=== PATIENT | female | born 1950 | race Caucasian/White ===

== ENCOUNTER → 2017-10-31 | Outpatient (CLI) | payer MEDICARE, BC ==
--- NOTE | 2017-11-01 11:33 | MR ---
MR liver with and without contrast HISTORY: Liver disease Multiplanar multisequence and postcontrast imaging obtained through the liver following 10 cc Gadavis t IV. No comparisons The liver shows signal drop on out of phase imaging with areas of sparing noted towards the portal re gion compatible with hepatic steatosis. There is no focal liver mass evident. No abnormal enhancement . The gallbladder shows no stone but is contracted. Biliary system is not dilated. Pancreas unremarka ble as seen. Kidneys show no hydronephrosis. Spleen is normal. No retroperitoneal adenopathy. Adrenal glands are normal. No bowel obstruction seen. There is a small hiatal hernia present. Lung bases wallace w no pleural effusion. Aorta shows normal caliber. IMPRESSION: Hepatic steatosis with focal fatty sparing, no liver mass. Small hiatal hernia.
== END | disposition home or self-care (01) ==
LOC: RADMRIMAIN 13:47
PROVIDERS: ATTEND Internal Medicine
DX: K76.0 Fatty (change of) liver, not elsewhere classified (principal); K44.9 Diaphragmatic hernia without obstruction or gangrene
CPT/HCPCS: 74183; A9581

== ENCOUNTER → 2018-02-25 | Outpatient (CLI) | payer MEDICARE, BC ==
--- NOTE | 2018-03-01 09:03 | MM ---
Reason for exam: screening (asymptomatic). Last mammogram was performed 1 year and 11 months ago. History: Patient is postmenopausal. Family history of breast cancer in paternal cousin. Taking estrogen for 1 year 1 month. Took progesterone for 1 year 1 month. Physical Findings: A clinical breast exam by your physician is recommended on an annual basis and results should be correlated with mammographic findings. MG 3D Screening Mammo W/Cad Bilateral CC and MLO view(s) were taken. Prior study comparison: April 03, 2016, bilateral MG screening mammo w CAD. August 04, 2013, bilateral digital screening mammo w/CAD. There are scattered fibroglandular densities. No significant changes when compared with prior studies. ASSESSMENT: Benign, BI-RAD 2 RECOMMENDATION: Routine screening mammogram of both breasts in 1 year.
== END ==
LOC: RADMAMWWP 13:37
PROVIDERS: ATTEND Internal Medicine
DX: Z12.31 Encounter for screening mammogram for malignant neoplasm of breast (principal)
CPT/HCPCS: 77063; 77067

== ENCOUNTER → 2018-02-26 | Outpatient (CLI) | payer MEDICARE, BC ==
--- NOTE | 2018-02-26 10:19 | CT ---
EXAMINATION TYPE: CT brain wo con DATE OF EXAM: 02/26/2018 COMPARISON: None INDICATION: Right posterior head injury yesterday. Dizziness. DLP: 1072.3 mGycm, Automated exposure control for dose reduction was used. CONTRAST: None CT of the brain is performed utilizing 3 mm thick sections through the posterior fossa and 3 mm thick sections through the remaining calvarium. Study is performed within 24 hours of arrival to the hosp [facility]. No abnormal hyperdensity is present to suggest an acute intracranial hemorrhage. No mass lesion is evident. No acute infarcts are evident. Ventricles and sulci are appropriate for the patient age. Paranasal sinuses and mastoid air cells within the [id number] are clear. There is soft tissue swelling and subcutaneous hematoma measuring 1.4 cm in the posterior right verte x of the patient's injury. No underlying fractures are evident. IMPRESSIONS: 1. Subcutaneous subgaleal hemorrhage measuring 1.4 cm. No underlying fracture is evident. 2. No acute intracranial process.
== END | disposition home or self-care (01) ==
LOC: RADCTMAIN 09:32
PROVIDERS: ATTEND Internal Medicine
DX: S06.300A Unspecified focal traumatic brain injury without loss of consciousness, initial encounter (principal)
CPT/HCPCS: 70450

== ENCOUNTER → 2018-09-21 | Outpatient (CLI) | payer MEDICARE, BC ==
[2018-09-21 07:58] LABS: Basophils % (A) 1 %; Eosinophils # (A) 0.2 k/uL (0-0.7); Eosinophils % (A) 2 %; HCT 43.8 % (34.0-46.0); HGB 13.6 gm/dL (11.4-16.0); Lymphocytes # (A) 2.5 k/uL (1.0-4.8); Lymphocytes % (A) 40 %; MCH 26.6 pg (25.0-35.0); MCHC 31.1 g/dL (31.0-37.0); MCV 85.7 fL (80.0-100.0); Mean Platelet Volume 6.7; Monocytes # (A) 0.3 k/uL (0-1.0); Monocytes % (A) 5 %; Neutrophils # (A) 3.2 k/uL (1.3-7.7); Neutrophils % (A) 50 %; Platelet Count 332 k/uL (150-450); RBC 5.11 m/uL (3.80-5.40); RDW 14.4 % (11.5-15.5); WBC 6.3 k/uL (3.8-10.6)
[2018-09-21 08:24] LABS: Appearance,Urine Clear (Clear); Bilirubin,Urine Negative (Negative); Blood,Urine Negative (Negative); Color,Urine Yellow; Glucose,Urine (UA) Negative (Negative); Ketones,Urine 1+ (Negative); Leukocyte Esterase,Urine Negative (Negative); Nitrite,Urine Negative (Negative); Protein,Urine Negative (Negative); Specific Gravity,Urine 1.016 (1.001-1.035); Urobilinogen,Urine <2.0 mg/dL (<2.0)
[2018-09-21 11:53] LABS: Albumin 4.3 g/dL (3.80-4.90); Albumin/Globulin Ratio 1.65 (1.60-3.17); Anion Gap 7.2 mmol/L (4.00-12.00); Calcium 9.8 mg/dL (8.7-10.3); Carbon Dioxide 25.8 mmol/L (21.6-31.8); Globulin 2.6 g/dL (1.6-3.3); LDL Cholesterol,Calculated 141.2 mg/dL (0.0-131.0); Potassium 4.2 mmol/L (3.5-5.5); Total Bilirubin 0.6 mg/dL (0.3-1.2); Total Protein 6.9 g/dL (6.2-8.2); VLDL Calculation 29.8 mg/dL (5.00-40.00)
== END ==
LOC: LABWHC1 07:02
PROVIDERS: ATTEND Internal Medicine
DX: Z00.00 Encounter for general adult medical examination without abnormal findings (principal); E78.5 Hyperlipidemia, unspecified; M81.0 Age-related osteoporosis without current pathological fracture
CPT/HCPCS: 36415; 80053; 80061; 81003; 82306; 85025

== ENCOUNTER → 2018-10-05 | Outpatient (CLI) | payer MEDICARE, BC ==
[~2018-10-05] MED LIST: DENOSUMAB 60 MG/ML 1 ML SYRINGE SQ ONE
[2018-10-05 11:47] VITALS: BP 121/85; PULSE 72; RESP 18; TEMP 97.8
== END ==
LOC: PROCWHC3 11:24
PROVIDERS: ATTEND Internal Medicine
DX: M81.0 Age-related osteoporosis without current pathological fracture (principal)
CPT/HCPCS: 96372; J0897

== ENCOUNTER → 2019-04-12 | Outpatient (CLI) | payer MEDICARE, BC ==
[~2019-04-12] MED LIST changes: +DENOSUMAB 60 MG/ML 1 ML SYRINGE SQ NR; -DENOSUMAB 60 MG/ML 1 ML SYRINGE SQ ONE
[2019-04-12 13:54] VITALS: BP 137/83; PULSE 101; RESP 16; TEMP 97.6
== END ==
LOC: PROCWHC3 13:46
PROVIDERS: ATTEND Internal Medicine
DX: M81.0 Age-related osteoporosis without current pathological fracture (principal)
CPT/HCPCS: 96372; J0897

== ENCOUNTER → 2019-04-26 | Outpatient (CLI) | payer MEDICARE, BC ==
--- NOTE | 2019-04-29 10:43 | MM ---
Reason for exam: screening (asymptomatic). Last mammogram was performed 1 year and 2 months ago. History: Patient is postmenopausal. Family history of breast cancer in paternal cousin. Took estrogen for 1 year 1 month. Took progesterone for 1 year 1 month. Physical Findings: A clinical breast exam by your physician is recommended on an annual basis and results should be correlated with mammographic findings. MG 3D Screening Mammo W/Cad Bilateral CC and MLO view(s) were taken. Prior study comparison: February 25, 2018, bilateral MG 3d screening mammo w/cad. April 03, 2016, bilateral MG screening mammo w CAD. There are scattered fibroglandular densities. 6mm circumscribed isodense nodularity lateral central left breast slightly larger from 2018. A cyst or other benign etiology is suspected. 6 month follow up recommended. ASSESSMENT: Probably benign, BI-RAD 3 RECOMMENDATION: Follow-up diagnostic mammogram of the left breast in 6 months.
== END | disposition home or self-care (01) ==
LOC: RADMAMWWP 10:56
PROVIDERS: ATTEND Internal Medicine
DX: Z12.31 Encounter for screening mammogram for malignant neoplasm of breast (principal)
CPT/HCPCS: 77063; 77067

== ENCOUNTER → 2019-10-13 | Outpatient (CLI) | payer MEDICARE, BC ==
[~2019-10-13] MED LIST changes: -DENOSUMAB 60 MG/ML 1 ML SYRINGE SQ NR; +DENOSUMAB 60 MG/ML 1 ML SYRINGE SQ ONE
[2019-10-13 11:48] VITALS: BP 102/72; PULSE 72; RESP 16; TEMP 98.2
== END | disposition home or self-care (01) ==
LOC: PROCWHC3 11:24
PROVIDERS: ATTEND Internal Medicine
DX: M81.0 Age-related osteoporosis without current pathological fracture (principal)
CPT/HCPCS: 96372; J0897

== ENCOUNTER → 2019-10-26 | Outpatient (CLI) | payer MEDICARE, BC ==
--- NOTE | 2019-10-26 12:04 | MM ---
Reason for exam: follow-up at short interval from prior study. Last mammogram was performed 6 months ago. History: Patient is postmenopausal. Family history of breast cancer in paternal cousin. Took hormonal contraceptives for 10 years. Took estrogen for 1 year 1 month. Took progesterone for 1 year 1 month. Physical Findings: Nurse Summary: 0.5cm nodule in the left breast at 11 o'clock (nurse sue). MG 3D Diag Mammo W/Cad LT CC and MLO view(s) were taken of the left breast. Prior study comparison: April 26, 2019, bilateral MG 3d screening mammo w/cad. February 25, 2018, bilateral MG 3d screening mammo w/cad. The breast tissue is heterogeneously dense. This may lower the sensitivity of mammography. Persistent nodule left breast 9 o'clock. Ultrasound recommended, ultrasound also for palpable. These results were verbally communicated with the patient and result sheet given to the patient on 10/26/19. ASSESSMENT: Incomplete: need additional imaging evaluation, BI-RAD 0 RECOMMENDATION: Ultrasound of the left breast. Manage patient on a clinical basis.
--- NOTE | 2019-10-26 12:05 | USB ---
Reason for exam: additional evaluation requested from abnormal screening. History: Patient is postmenopausal. Family history of breast cancer in paternal cousin. Took hormonal contraceptives for 10 years. Took estrogen for 1 year 1 month. Took progesterone for 1 year 1 month. US Breast Limited LT Left limited breast ultrasound including focal area of concern, retroareolar and axilla demonstrates no cystic or solid lesion seen. Negative. These results were verbally communicated with the patient and result sheet given to the patient on 10/26/19. ASSESSMENT: Negative, BI-RAD 1 RECOMMENDATION: Follow-up diagnostic mammogram of both breasts in 6 months. Manage patient on a clinical basis.
== END | disposition home or self-care (01) ==
LOC: RADMAMWWP 10:48
PROVIDERS: ATTEND Internal Medicine
DX: R92.2 Inconclusive mammogram (principal); N63.20 Unspecified lump in the left breast, unspecified quadrant; R92.8 Other abnormal and inconclusive findings on diagnostic imaging of breast
CPT/HCPCS: 77065; 76642; G0279; 77061

== ENCOUNTER → 2020-04-17 | Outpatient (CLI) | payer MEDICARE, BC ==
[~2020-04-17] MED LIST changes: +DENOSUMAB 60 MG/ML 1 ML SYRINGE SQ NR; -DENOSUMAB 60 MG/ML 1 ML SYRINGE SQ ONE
[2020-04-17 12:07] VITALS: BP 134/93; PULSE 95; RESP 16; TEMP 98.1
== END | disposition home or self-care (01) ==
LOC: PROCWHC3 11:57
PROVIDERS: ATTEND Internal Medicine
DX: M81.0 Age-related osteoporosis without current pathological fracture (principal)
CPT/HCPCS: 96372; J0897

== ENCOUNTER → 2020-06-06 | Outpatient (CLI) | payer MEDICARE, BC ==
[2020-06-06 10:46] LABS: Basophils # (A) 0.1 k/uL (0-0.2); Basophils % (A) 1 %; Eosinophils # (A) 0.1 k/uL (0-0.7); Eosinophils % (A) 2 %; HCT 47.9 % (34.0-46.0); HGB 14.4 gm/dL (11.4-16.0); Hypochromasia Slight; Lymphocytes # (A) 2.4 k/uL (1.0-4.8); Lymphocytes % (A) 32 %; MCH 27.1 pg (25.0-35.0); MCHC 30.1 g/dL (31.0-37.0); MCV 89.9 fL (80.0-100.0); Mean Platelet Volume 6.7; Monocytes # (A) 0.3 k/uL (0-1.0); Monocytes % (A) 5 %; Neutrophils # (A) 4.3 k/uL (1.3-7.7); Neutrophils % (A) 59 %; Platelet Count 348 k/uL (150-450); RBC 5.33 m/uL (3.80-5.40); WBC 7.4 k/uL (3.8-10.6)
[2020-06-06 11:00] LABS: Potassium 4.8 mmol/L (3.5-5.1)
== END | disposition home or self-care (01) ==
LOC: LABPAT 09:48
PROVIDERS: ATTEND Orthopaedic Surgery
DX: Z01.812 Encounter for preprocedural laboratory examination (principal); M23.91 Unspecified internal derangement of right knee
CPT/HCPCS: 36415; 80051; 85025

== ENCOUNTER 2020-06-13 09:55 | Day surgery (SDC) | payer MEDICARE, BC ==
[2020-06-11 15:32] VITALS: BMI 30.1
--- NOTE | 2020-06-12 16:12 | HP ---
HISTORY AND PHYSICAL Surgery is scheduled for 06/13/2020. Hilary Bnag is a 69-year-old patient seen with progressive right knee pain. We discussed options for treatment. She elected to proceed with right knee arthroscopy. Consent was obtained. PAST MEDICAL HISTORY: Noncontributory. PAST SURGICAL HISTORY: Appendectomy, section, hand surgery, hysterectomy, tonsillectomy, wrist surgery. DAILY MEDICATIONS: None. ALLERGIES: SULFA. SOCIAL HISTORY: She denies current tobacco use. PHYSICAL EVALUATION OF THE RIGHT KNEE: Range of motion 0-130. Mild effusion. Tenderness medial joint line. Positive medial Moira's. Ligaments stable. Hip rotation without pain. Distal neurovascular exam is intact. Radiographs of the right knee revealed mild osteoarthritis. Right knee MRI revealed medial meniscal tear, osteoarthritis, joint effusion, and loose body. IMPRESSION: 1. Internal derangement, right knee with medial meniscal tear. 2. Right knee loose body. 3. Right knee mild osteoarthritis. PLAN: Right knee arthroscopy with partial meniscectomy, removal loose body, and partial synovectomy. MMODL / IJN: [id number] /
[~2020-06-13 09:55] MED LIST changes: -DENOSUMAB 60 MG/ML 1 ML SYRINGE SQ NR; +DEXAMETHASONE SOD PHOSPHATE 4 MG/ML 1 ML VIAL IV ONE; +LACTATED RINGERS 1,000 ML IV SCH; +LIDOCAINE 1% (10MG/ML) FOR IV START INTRADERMA PRN; +MIDAZOLAM 2 MG/2 ML VIAL IV PRN
[2020-06-13] MEDS ORDERED: ONDANSETRON 4 MG/2 ML VIAL ONE ×2 (10:23→14:34)
[2020-06-13] MEDS ORDERED: KETOROLAC 15 MG/ML 1 ML VIAL ONE (11:16)
[2020-06-13] MEDS ORDERED: LIDOCAINE 1% INJ 10MG/ML (20 ML MDV) ONE (11:16)
[2020-06-13] MEDS ORDERED: PROPOFOL 10 MG/ML 20 ML VIAL IV ONE (11:16)
[2020-06-13] MEDS ORDERED: fentaNYL (PF) 50 MCG/ML 2 ML AMP ONE (11:16)
[2020-06-13] MEDS ORDERED: MIDAZOLAM 2 MG/2 ML VIAL ONE (11:16)
[2020-06-13] MEDS ORDERED: BUPIVACAINE (PF) 0.25% 30 ML VIAL INTRAARTIC ONE (11:33)
--- NOTE | 2020-06-13 12:11 | P.OP ---
Date of Procedure: 06/13/20 Preoperative Diagnosis: Internal derangement right knee Postoperative Diagnosis: 1. Tear medial meniscus right knee 2. Grade 2/3 chondromalacia medial femoral condyle right knee 3. 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 Reactive synovitis medial, lateral and suprapatellar compartments right knee Procedure(s) Performed: 1. Arthroscopic partial medial meniscectomy right knee 2. Arthroscopic chondroplasty medial femoral condyle right knee 3. Partial synovectomy medial, lateral and suprapatellar compartments right knee Anesthesia: SOLOMONA, local Surgeon: Parag Olmstead Estimated Blood Loss (ml): 7 Pathology: none sent Condition: stable Disposition: PACU Indications for Procedure: 69-year-old patient seen with progressive right knee pain. After treatment options were discussed with her, she elected to proceed with arthroscopy. Operative Findings: see description of procedure Description of Procedure: Patient was taken to the operative suite. Patient underwent a [general] anesthetic by the department of anesthesia. Patient was given preoperative antibiotics. The right lower extremity was placed in a well-padded arthroscopic leg boyd. The right leg was prepped and draped in the normal sterile orthopedic fashion. A lateral parapatellar and suprapatellar incision was made. Trochars were inserted. Arthroscopy was initiated. Suprapatellar pouch revealed diffuse thick reactive synovitis. The patellofemoral joint appeared to articulate congruently. There were areas of grade 4 chondromalacia with exposed bone involving both the medial patellar facet and the medial side of the femoral sulcus. There were no osteochondral tears present.. The scope was guided into the medial gutter there was no plica, there were no loose bodies. The scope was then guided into the medial compartment. A medial parapatellar incision was made. Trocar inserted followed by probe. There was a large tear posterior horn medial meniscus. There were grade 2/3 chondromalacia changes of the medial femoral condyle with some diffuse osteochondral tears present. There was thick reactive synovitis anteriorly. I performed a partial medial meniscectomy getting down to stable meniscal tissue. I performed a chondroplasty of the medial femoral condyle getting down to stable osteochondral tissue. I performed a partial synovectomy decompressing the thick reactive synovitis. The residual meniscus was probed and found to be stable. The residual osteochondral surface appeared stable. There was good decompression of the synovitis. Scope and probe were then guided into the intercondylar notch. Cruciates were identified, probed and found to be stable. The scope and probe were then guided into lateral compartment. The lateral meniscus was probed and found to be stable. There was mild grade 1 chondromalacia of the lateral compartment. There was thick reactive synovitis anteriorly. I introduced a motorized shaver and performed a partial synovectomy decompressing the thick reactive synovitis. Shaver was removed. There was good decompression of the synovitis. The scope was in guided back into the suprapatellar compartment. I introduced a motorized shaver into the suprapatellar compartment. I debrided some piecemeal fragments of meniscus I encountered. I performed a partial synovectomy decompressing the reactive synovitis. The shaver was removed. There was good decompression of the synovitis. I took one more look around the entire knee, no residual debris. Instruments were now removed from the joint. The joint was infiltrated with .25% Marcaine. Steri-S trips were applied to the portal sites. Sterile dressings were applied. The patient was placed into a GARTH hose. No tourniquet was utilized. The patient was awakened, transferred to a bed and taken to recovery stable satisfactory condition.
[2020-06-13 12:13] VITALS: TEMP 98
[2020-06-13] MEDS: HYDROmorphone 0.5 MG/0.5 ML SYRINGE IVP PRN ×2 (12:17→12:31)
[2020-06-13] MEDS ORDERED: HYDROcodone/APAP 5-325MG 1 EACH TAB ONE (13:11)
[2020-06-13] MEDS ORDERED: HYDROcodone/APAP 5-325MG 1 EACH TAB PO ONE (13:18)
[2020-06-13 14:07] VITALS: RESP 16
[2020-06-13] MEDS ORDERED: ONDANSETRON 4 MG/2 ML VIAL IVP ONE (14:35)
[2020-06-13 15:26] VITALS: BP 142/72; PULSE 72
== END 2020-06-13 15:36 | disposition home or self-care (01) ==
LOC: OR 09:55
PROVIDERS: ATTEND Orthopaedic Surgery
DX: S83.241A Other tear of medial meniscus, current injury, right knee, initial encounter (principal); X58.XXXA Exposure to other specified factors, initial encounter; M22.41 Chondromalacia patellae, right knee; M65.861 Other synovitis and tenosynovitis, right lower leg; M17.11 Unilateral primary osteoarthritis, right knee; M25.461 Effusion, right knee; E78.5 Hyperlipidemia, unspecified; Z79.899 Other long term (current) drug therapy; Z88.2 Allergy status to sulfonamides; Z90.49 Acquired absence of other specified parts of digestive tract; Z90.710 Acquired absence of both cervix and uterus; Z90.89 Acquired absence of other organs; Z98.890 Other specified postprocedural states
CPT/HCPCS: 29881; 29876; J2250; J1100; J0690; J2405; J2001; J3010; J1885; J2704; J1170

== ENCOUNTER → 2020-08-03 | Outpatient (CLI) | payer MEDICARE, BC ==
--- NOTE | 2020-08-03 13:45 | MM ---
Reason for exam: additional evaluation requested from prior study. Last mammogram was performed 9 months ago. History: Patient is postmenopausal. Family history of breast cancer in paternal cousin. Took hormonal contraceptives for 10 years. Took estrogen for 1 year 1 month. Took progesterone for 1 year 1 month. Physical Findings: Nurse did not find any significant physical abnormalities on exam. MG 3D Diag Mammo W/Cad BALDEMAR Bilateral CC and MLO view(s) were taken. Prior study comparison: October 26, 2019, left breast MG 3d diag mammo w/cad LT. April 26, 2019, bilateral MG 3d screening mammo w/cad. The breast tissue is heterogeneously dense. This may lower the sensitivity of mammography. There is chronic nodularity in the left breast. Medial nodular asymmetry is more defined in the right breast. 6mm 2-3 o'clock low density on spot views. These results were verbally communicated with the patient and result sheet given to the patient on 08/03/20. ASSESSMENT: Incomplete: need additional imaging evaluation, BI-RAD 0 RECOMMENDATION: Ultrasound of the right breast. (2-3 o'clock)
--- NOTE | 2020-08-03 13:46 | USB ---
Reason for exam: additional evaluation requested from abnormal screening. History: Patient is postmenopausal. Family history of breast cancer in paternal cousin. Took hormonal contraceptives for 10 years. Took estrogen for 1 year 1 month. Took progesterone for 1 year 1 month. US Breast Limited RT Technologist: Quynh Katz Right limited breast ultrasound including focal area of concern, retroareolar and axilla demonstrates no cystic or solid lesion seen. Scanned 1-4 o'clock. These results were verbally communicated with the patient and result sheet given to the patient on 08/03/20. ASSESSMENT: Probably benign, BI-RAD 3 RECOMMENDATION: Follow-up diagnostic mammogram of the right breast in 6 months.
== END | disposition home or self-care (01) ==
LOC: RADMAMWWP 10:47
PROVIDERS: ATTEND Internal Medicine
DX: R92.8 Other abnormal and inconclusive findings on diagnostic imaging of breast (principal); Z78.0 Asymptomatic menopausal state
CPT/HCPCS: 77066; 76642; G0279; 77062

== ENCOUNTER → 2020-10-22 | Outpatient (CLI) | payer MEDICARE, BC ==
[~2020-10-22] MED LIST changes: +DENOSUMAB 60 MG/ML 1 ML SYRINGE SQ NR; -DEXAMETHASONE SOD PHOSPHATE 4 MG/ML 1 ML VIAL IV ONE; -LACTATED RINGERS 1,000 ML IV SCH; -LIDOCAINE 1% (10MG/ML) FOR IV START INTRADERMA PRN; -MIDAZOLAM 2 MG/2 ML VIAL IV PRN
[2020-10-22 12:47] VITALS: BP 155/93; PULSE 81; RESP 16; TEMP 98.7
== END | disposition home or self-care (01) ==
LOC: PROCWHC3 12:09
PROVIDERS: ATTEND Internal Medicine
DX: M81.0 Age-related osteoporosis without current pathological fracture (principal)
CPT/HCPCS: 96372; J0897

== ENCOUNTER → 2021-05-24 | Outpatient (CLI) | payer MEDICARE, BC ==
[2021-05-24 13:37] VITALS: BP 132/89; PULSE 96; RESP 14; TEMP 98.3
== END ==
LOC: PROCWHC3 13:15
PROVIDERS: ATTEND Family Medicine
DX: M81.0 Age-related osteoporosis without current pathological fracture (principal); Z88.2 Allergy status to sulfonamides; Z87.891 Personal history of nicotine dependence
CPT/HCPCS: 96372; J0897

== ENCOUNTER → 2021-07-17 | Outpatient (CLI) | payer MEDICARE, BC ==
--- NOTE | 2021-07-17 10:18 | MM ---
Reason for exam: additional evaluation requested from prior study. Last mammogram was performed 11 months ago. History: Patient is postmenopausal. Family history of breast cancer in paternal cousin. Took hormonal contraceptives for 10 years. Took estrogen for 1 year 1 month. Took progesterone for 1 year 1 month. Physical Findings: A clinical breast exam by your physician is recommended on an annual basis and results should be correlated with mammographic findings. MG 3D Diag Mammo W/Cad BALDEMAR Bilateral CC and MLO view(s) were taken. Prior study comparison: August 03, 2020, bilateral MG 3d diag mammo w/cad BALDEMAR. October 26, 2019, left breast MG 3d diag mammo w/cad LT. The breast tissue is heterogeneously dense. This may lower the sensitivity of mammography. There is chronic nodularity bilaterally. There is no dominant lesion. No significant new findings when compared with previous films. These results were verbally communicated with the patient and result sheet given to the patient on 07/17/21. ASSESSMENT: Benign, BI-RAD 2 RECOMMENDATION: Routine screening mammogram of both breasts in 1 year.
== END | disposition home or self-care (01) ==
LOC: RADMAMWWP 09:32
PROVIDERS: ATTEND Family Medicine
DX: R92.8 Other abnormal and inconclusive findings on diagnostic imaging of breast (principal); Z78.0 Asymptomatic menopausal state; Z80.3 Family history of malignant neoplasm of breast
CPT/HCPCS: 77066; G0279; 77062

== ENCOUNTER → 2022-04-10 | Outpatient (CLI) | payer MEDICARE, BC ==
[2022-04-10 08:05] VITALS: BP 127/84; PULSE 92; RESP 16; TEMP 97.5
== END ==
LOC: PROCWHC3 07:49
PROVIDERS: ATTEND Family Medicine
DX: M81.0 Age-related osteoporosis without current pathological fracture (principal); Z88.2 Allergy status to sulfonamides; Z87.891 Personal history of nicotine dependence
CPT/HCPCS: 96372; J0897

== ENCOUNTER → 2022-09-19 | Outpatient (CLI) | payer MEDICARE, BC ==
--- NOTE | 2022-09-22 07:57 | MM ---
Reason for Exam: Screening (asymptomatic). Last mammogram was performed 1 year(s) and 2 month(s) ago. Patient History: Menarche at age 13. First Full-Term at age 23. Left ovary removed at age 53. Right ovary removed at age 53. Hysterectomy at age 53. Postmenopausal. Estrogen for 1 year, 1 month. Progesterone for 1 year, 1 month, until age 59. Patient used Hormonal Contraceptives for 10 years. Paternal cousin had breast cancer, age 45. Risk Values: Julita 5 year model risk: 1.7%. NCI Lifetime model risk: 5.2%. Prior Study Comparison: 10/26/2019 Left Diagnostic Mammogram, [facility]. 08/03/2020 Bilateral Diagnostic Mammogram, [facility]. 07/17/2021 Bilateral Diagnostic Mammogram, [facility]. Tissue Density: The breast tissue is heterogeneously dense. This may lower the sensitivity of mammography. Findings: Analyzed By CAD. Asymmetric density upper outer left breast zone B. Additional views recommended. No suspicious calcifications present. Overall Assessment: Incomplete: need additional imaging evaluation, BI-RAD 0 Management: Diagnostic Mammogram of the left breast. . Patient should continue monthly self-breast exams. A clinical breast exam by your physician is recommended on an annual basis. This exam should not preclude additional follow-up of suspicious palpable abnormalities. Note on Julita scores and lifetime risk: 1. A Julita score greater than 3% is considered moderate risk. If this is the case, consider specialist referral to assess eligibility for a risk reducing agent. 2. If overall lifetime risk for the development of breast cancer is 20% or higher, the patient may qualify for future screening with alternating mammogram and breast MRI. Electronically signed and approved by: Bebo Reyes M.D. Radiologis
== END | disposition home or self-care (01) ==
LOC: RADMAMWWP 07:18
PROVIDERS: ATTEND Family Medicine
DX: Z12.31 Encounter for screening mammogram for malignant neoplasm of breast (principal); Z78.0 Asymptomatic menopausal state; Z80.3 Family history of malignant neoplasm of breast
CPT/HCPCS: 77063; 77067

== ENCOUNTER → 2022-09-24 | Outpatient (CLI) | payer MEDICARE, BC ==
--- NOTE | 2022-09-24 15:27 | MM ---
Reason for Exam: Additional evaluation requested from abnormal screening. Last screening mammogram was performed less than 1 month ago. Patient History: Menarche at age 13. First Full-Term at age 23. Left ovary removed at age 53. Right ovary removed at age 53. Hysterectomy at age 53. Postmenopausal. Estrogen for 1 year, 1 month. Progesterone for 1 year, 1 month, until age 59. Patient used Hormonal Contraceptives for 10 years. Paternal cousin had breast cancer, age 45. Risk Values: Julita 5 year model risk: 1.7%. NCI Lifetime model risk: 5.2%. Prior Study Comparison: 08/03/2020 Bilateral Diagnostic Mammogram, [facility]. 07/17/2021 Bilateral Diagnostic Mammogram, [facility]. 09/19/2022 Bilateral MG 3D screening mammo w/cad, [facility]. Tissue Density: Left: The breast tissue is heterogeneously dense. This may lower the sensitivity of mammography. Findings: Analyzed By CAD. Nodularity to the lateral aspect of left breast on CC view is felt to be present on multiple priors dating to at least 2018 No new suspicious masses, calcifications or distortions. Overall Assessment: Benign, BI-RAD 2 Management: Screening Mammogram of both breasts in 1 year. Results were given to the patient verbally at the time of exam. Patient should continue monthly self-breast exams. A clinical breast exam by your physician is recommended on an annual basis. This exam should not preclude additional follow-up of suspicious palpable abnormalities. Note on Julita scores and lifetime risk: 1. A Julita score greater than 3% is considered moderate risk. If this is the case, consider specialist referral to assess eligibility for a risk reducing agent. 2. If overall lifetime risk for the development of breast cancer is 20% or higher, the patient may qualify for future screening with alternating mammogram and breast MRI. Electronically signed and approved by: Sriram Tripp DO
== END | disposition home or self-care (01) ==
LOC: RADMAMWWP 14:51
PROVIDERS: ATTEND Family Medicine
DX: N63.20 Unspecified lump in the left breast, unspecified quadrant (principal); Z78.0 Asymptomatic menopausal state; Z80.3 Family history of malignant neoplasm of breast; Z90.721 Acquired absence of ovaries, unilateral
CPT/HCPCS: 77065; G0279; 77061

== ENCOUNTER → 2022-10-10 | Outpatient (CLI) | payer MEDICARE, BC ==
[2022-10-10 12:14] VITALS: BP 148/84; PULSE 103; RESP 16; TEMP 98.6
== END ==
LOC: PROCWHC3 12:03
PROVIDERS: ATTEND Family Medicine
DX: M81.0 Age-related osteoporosis without current pathological fracture (principal)
CPT/HCPCS: 96372; J0897

== ENCOUNTER 2022-11-14 12:33 | Day surgery (SDC) | payer MEDICARE, BC ==
[2022-11-12 10:18] VITALS: BMI 28.8
[2022-11-14] MEDS ORDERED: LACTATED RINGERS 1,000 ML IV ONE ×2 (12:50→14:30)
[2022-11-14 13:03] VITALS: RESP 16; TEMP 97
[2022-11-14] MEDS ORDERED: LACTATED RINGERS 1,000 ML IV SCH (13:04)
[2022-11-14] MEDS ORDERED: LIDOCAINE 2% INJ 20 MG/ML (2 ML VIAL) ONE (14:28)
[2022-11-14] MEDS ORDERED: PROPOFOL 10 MG/ML 20 ML VIAL IV ONE (14:28)
--- NOTE | 2022-11-14 14:45 | P.PCN ---
Date of Procedure: 11/14/22 Procedure(s) Performed: BRIEF HISTORY: Patient is a 72-year-old pleasant white female scheduled for an elective colonoscopy as a part of screening for colon cancer. PROCEDURE PERFORMED: Colonoscopy. PREOPERATIVE DIAGNOSIS: Screening for colon cancer. IV sedation per Anesthesia. PROCEDURE: After informed consent was obtained, the patient, was brought into the endoscopy unit. IV sedation was administered by Anesthesia under continuous monitoring. Digital rectal examination was normal. Initially the Olympus CF-160 flexible video colonoscope was then inserted in the rectum, gradually advanced into the cecum without any difficulty. Careful examination was performed as the scope was gradually being withdrawn. Ileocecal valve and the appendiceal orifice were visualized and appeared normal. Prep was excellent. Mucosa of the cecum, ascending colon, transverse colon, descending colon, sigmoid colon, and rectum appeared normal. Retroflexion was performed in the rectum and no lesions were seen. The patient tolerated the procedure well. IMPRESSION: Normal-appearing colon from rectum to cecum with no evidence of colorectal neoplasia . RECOMMENDATIONS: Findings of this examination were discussed with the patient as well as her family. She was advised to have a repeat screening colonoscopy in 10 years..
[2022-11-14 15:22] VITALS: BP 117/77; PULSE 82
== END 2022-11-14 15:43 | disposition home or self-care (01) ==
LOC: ORWHC2ENDO 12:33
PROVIDERS: ATTEND Internal Medicine Gastroenterology
DX: Z12.11 Encounter for screening for malignant neoplasm of colon (principal); E78.5 Hyperlipidemia, unspecified; M81.0 Age-related osteoporosis without current pathological fracture; K21.9 Gastro-esophageal reflux disease without esophagitis; Z90.49 Acquired absence of other specified parts of digestive tract; Z88.2 Allergy status to sulfonamides; Z79.899 Other long term (current) drug therapy
CPT/HCPCS: J2704; J2001; G0121

== ENCOUNTER → 2023-02-10 | Outpatient (CLI) | payer MEDICARE, BC ==
--- NOTE | 2023-02-10 15:59 | XR ---
EXAM TYPE: LUMBAR SPINE X RAY SERIES COMPARISON: NONE HISTORY: Pain TECHNIQUE: 4 views are submitted. FINDINGS: Alignment is anatomic. The pedicles are intact. The transverse processes are intact. There is no s pondylolysis or spondylolisthesis. Diffuse osteopenia. There is grade 1 anterolisthesis L4-L5. There is advanced facet arthropathy L4-5 and L5-S1 with mild degenerative changes at these levels. IMPRESSION: 1. Mild degenerative disc disease L4-5 and L5-S1 with advanced facet arthropathy. SPECT foraminal enc roachment at both levels. Minimal anterolisthesis L4-L5.
== END | disposition home or self-care (01) ==
LOC: RADXRMAIN 15:32
PROVIDERS: ATTEND Family Medicine
DX: M51.36 Other intervertebral disc degeneration, lumbar region (principal); M51.37 Other intervertebral disc degeneration, lumbosacral region; M47.816 Spondylosis without myelopathy or radiculopathy, lumbar region; M43.16 Spondylolisthesis, lumbar region
CPT/HCPCS: 72110

== ENCOUNTER → 2023-03-12 | Outpatient (CLI) | payer MEDICARE, BC ==
--- NOTE | 2023-03-12 13:48 | BD ---
EXAMINATION TYPE: Axial Bone Density DATE OF EXAM: 03/12/2023 CLINICAL HISTORY: 72 years old Female. ICD-10 CODE: M81.0 AGE-RELATED OSTEOPOROSIS W/O CURRENT PATHO LO Height: 63in Weight: 171lb FRAX RISK QUESTIONS: History of Fracture in Adulthood: yes Secondary Osteoporosis: RISK FACTORS HISTORY OF: Active: yes Postmenopausal woman: yes MEDICATIONS: Osteoporosis Medications: Which medication: Prolia How Long: about 7 years Additional Medications: bp med, calcium with vitamin d Additional History: left wrist fx EXAM MEASUREMENTS: Bone mineral densitometry was performed using the Jivox System. Bone mineral density as measured about the Lumbar spine is: ----- L1-L4(G/cm2): 0.997 T Score Values are as follows: ----- L1: -1.9 ----- L2: -1.6 ----- L3: -1.2 ----- L4: -1.7 ----- L1-L4: -1.5 Z Score Values are as follows: ----- L1: -0.7 ----- L2: -0.3 ----- L3: 0.1 ----- L4: -0.4 ----- L1-L4: -0.3 Bone mineral density has: Decreased -1.6% since study of: 09-11-2005 Bone mineral density about the R hip (g/cm2): 0.934 Bone mineral density about the L hip (g/cm2): 0.834 T Score values are as follows: -----R Neck: -1.4 -----L Neck: -2.2 -----R Total: -0.6 -----L Total: -1.4 Z Score values are as follows: -----R Neck: 0.0 -----L Neck: -0.8 -----R Total: 0.6 -----L Total: -0.2 Bone mineral density has: Increased 2.4% since study of: 09-11-2005 FRAX%s: The graph provided illustrates a 19.7% chance for a major osteoporotic fx and a 4.2% chance f or the hips probability for fx in 10 years time. IMPRESSION: Osteopenia (T Score between -2.5 and -1). There is slightly increased risk of fracture and the patient may be considered for treatment. Re-Screen 2-5 years. NOTE: T-SCORE=SD OF THE YOUNG ADULT MEAN.
== END | disposition home or self-care (01) ==
LOC: RADBDWWP 13:04
PROVIDERS: ATTEND Family Medicine
DX: M81.0 Age-related osteoporosis without current pathological fracture (principal); M85.89 Other specified disorders of bone density and structure, multiple sites; Z78.0 Asymptomatic menopausal state
CPT/HCPCS: 77080

== ENCOUNTER → 2023-05-19 | Outpatient (CLI) | payer MEDICARE, BC ==
--- NOTE | 2023-05-19 11:35 | NM ---
EXAMINATION TYPE: NM stress cardiolite complete DATE OF EXAM: 05/19/2023 COMPARISON: NONE CLINICAL INDICATION: Female, 72 years old with history of R07.89 OHER CHEST PAIN; TECHNIQUE: After the intravenous administration of 10.2 mCi Tc 99m Sestamibi - Rest images obtained 61 minutes post injection. The patient exercised using a JOSÉ protocol and 1 minute prior to peak exercise was injected with 26.3 mCi Tc 99m Sestamibi - Stress images obtained 13 minutes post injecti on. FINDINGS: Targeted heart rate was achieved during performance of the study. Review of stress and rest SPECT masha ges demonstrates no distinct perfusion abnormality. Gated analysis shows normal wall motion with an estimated left ventricular ejection fraction of 60 %. IMPRESSION: No scintigraphic evidence for reversible ischemia
--- NOTE | 2023-05-19 13:52 | CA ---
Exercise Stress Test Report Name: Hilary Bang Exam Date: 05/19/2023 10:33 Exam Location: [facility] Stress Ht (in): 63 Wt (lb): 175 BSA: 1.83 Ordering Phys: Ryne Pascal DO Referring Phys: SAVI, Technologist: Bhupinder Agosto Age: 72 Gender: F : 1950 Procedure CPT: Indications: R07.89 OHER CHEST PAIN ICD-10 Codes: Patient History: CHEST PAIN, PALPITATIONS, HTN, FAMILY HX OF HEART DISEASE, FORMER SMOKER - QUIT 40 YEARS AGO Medications: VIT D3, METOPROLOL, MULTIVITAMIN, COLLAGEN, MAGNESIUM Meds past 24 hrs: Pretest Chest Pain: STRESS TEST Juancarlos Protocol Exercise Duration (min:sec): 06:[address] Depressions (mm): Angina Score: Munoz Score: Resting HR (bpm): 99 Peak HR (bpm): 155 Resting BP (mmHg): 122 / 80 Peak BP (mmHg): 170 / 84 MPHR: 150 Target HR: 128 % MPHR: 103 METS: 7.1 Total Dose: Peak Dose: Atropine: Double Product: 85389 BP Response: Stress Termination: MAX EXERTION/TARGET HR Stress Symptoms: NO SYMPTOMS Stress Summary: ECG ANALYSIS Resting ECG: Stress ECG: CONCLUSIONS Average exercise capacity of 6 minutes of a Juancarlos protocol, 7.1 metastases Normal heart rate and blood pressure response No ECG evidence for ischemia or arrhythmia Nuclear portion will be reported separately Dr. Arley Victor MD (Electronically Signed) Final Date: 19 May 2023 13:51
== END | disposition home or self-care (01) ==
LOC: RADNMMAIN 04-16 08:04
PROVIDERS: ATTEND Family Medicine
DX: R07.89 Other chest pain (principal); R00.2 Palpitations; I10 Essential (primary) hypertension; Z87.891 Personal history of nicotine dependence
CPT/HCPCS: 93017; 78452; A9500

== ENCOUNTER → 2023-06-19 | Outpatient (CLI) | payer MEDICARE, BC ==
--- NOTE | 2023-06-19 14:49 | XR ---
EXAMINATION TYPE: XR chest 2V DATE OF EXAM: 06/19/2023 COMPARISON: NONE HISTORY: Chest pressure. TECHNIQUE: Frontal and lateral views of the chest are obtained. FINDINGS: There is no focal air space opacity, pleural effusion, or pneumothorax seen. The cardiac silhouette size is within normal limits. The osseous structures are intact. IMPRESSION: No acute cardiopulmonary process.
== END | disposition home or self-care (01) ==
LOC: RADXRMAIN 12:47
PROVIDERS: ATTEND Family Medicine
DX: R07.89 Other chest pain (principal)
CPT/HCPCS: 71046

== ENCOUNTER → 2023-11-04 | Outpatient (CLI) | payer MEDICARE, BC ==
--- NOTE | 2023-12-06 17:43 | P.CEMON ---
Diagnosis: [facility] cardiac outpatient telemetry for 21 days shows sinus mechanism heart rates ranging from 52-120 beats a minute average 78 beats a minute 4% PVC burden No other arrhythmias noted
--- NOTE | 2023-12-28 13:29 | EM ---
Diagnosis: [facility] cardiac outpatient telemetry for 21 days shows sinus mechanism heart rates ranging from 52-120 beats a minute average 78 beats a minute 4% PVC burden No other arrhythmias noted. Additional CC's: Ryne BINGHAM
== END | disposition home or self-care (01) ==
LOC: RADECHMAIN 07:51
PROVIDERS: ATTEND Family Medicine
DX: R00.2 Palpitations (principal); I49.3 Ventricular premature depolarization
CPT/HCPCS: 93270

== ENCOUNTER → 2024-01-01 | Outpatient (CLI) | payer MEDICARE, BC ==
[2024-01-01] MEDS: DENOSUMAB 60 MG/ML 1 ML SYRINGE SQ NR (11:45)
[2024-01-01 11:50] VITALS: BP 108/76; PULSE 80; RESP 16; TEMP 97.8
== END ==
LOC: PROCWHC3 11:36
PROVIDERS: ATTEND Family Medicine
DX: M81.0 Age-related osteoporosis without current pathological fracture (principal)
CPT/HCPCS: 96372

== ENCOUNTER → 2024-01-15 | Outpatient (CLI) | payer MEDICARE, BC ==
--- NOTE | 2024-01-18 08:35 | MM ---
Reason for Exam: Screening (asymptomatic). Last mammogram was performed 1 year(s) and 4 month(s) ago. Patient History: Menarche at age 13. First Full-Term at age 23. Left ovary removed at age 53. Right ovary removed at age 53. Hysterectomy at age 53. Postmenopausal. Estrogen for 1 year, 1 month. Progesterone for 1 year, 1 month, until age 59. Patient used Hormonal Contraceptives for 10 years. Paternal cousin had breast cancer, age 45. Risk Values: Julita 5 year model risk: 1.7%. NCI Lifetime model risk: 4.7%. Prior Study Comparison: 07/17/2021 Bilateral Diagnostic Mammogram, [facility]. 09/19/2022 Bilateral MG 3D screening mammo w/cad, [facility]. 09/24/2022 Left MG 3D work up w/cad , [facility]. Tissue Density: There are scattered areas of fibroglandular density. Findings: Analyzed By CAD. Right breast: There is no suspicious group of microcalcifications or new suspicious mass. Left breast: There is no suspicious group of microcalcifications or new suspicious mass. Overall Assessment: Negative, BI-RAD 1 Management: Screening Mammogram of both breasts in [address] [facility] will attempt to contact patient to return for supplemental views and ultrasound if indicated. Patient should continue monthly self-breast exams. A clinical breast exam by your physician is recommended on an annual basis. This exam should not preclude additional follow-up of suspicious palpable abnormalities. Note on Julita scores and lifetime risk: 1. A Julita score greater than 3% is considered moderate risk. If this is the case, consider specialist referral to assess eligibility for a risk reducing agent. 2. If overall lifetime risk for the development of breast cancer is 20% or higher, the patient may qualify for future screening with alternating mammogram and breast MRI. [facility], , 01/18/2024 8:32 AM. Electronically signed and approved by: Sriram Tripp DO
== END | disposition home or self-care (01) ==
LOC: RADMAMWWP 09:45
PROVIDERS: ATTEND Family Medicine
DX: Z12.31 Encounter for screening mammogram for malignant neoplasm of breast
CPT/HCPCS: 77063; 77067

== ENCOUNTER 2024-06-29 10:50 | Outpatient (CLI) | payer MEDICARE, BC ==
[2024-06-29] MEDS: DENOSUMAB 60 MG/ML 1 ML SYRINGE SQ NR (11:00)
[2024-06-29 11:02] VITALS: BP 125/84; PULSE 73; RESP 16; TEMP 98.2
== END 2024-06-29 13:10 | disposition home or self-care (01) ==
LOC: PROCWHC3 10:50
PROVIDERS: ATTEND Family Medicine
DX: M81.0 Age-related osteoporosis without current pathological fracture (principal)
CPT/HCPCS: 96372; J0897